=== PATIENT | female | born 1990 | race African-American/Black ===

== ENCOUNTER 2017-09-15 19:44 | Emergency (ER) | payer OTHER ==
[~2017-09-15] VITALS: Ht 157.5 cm; Wt 55.0 kg
[~2017-09-15 19:44] MED LIST: CYCL5TAB PO; NAPR500 PO; Z.0.NO CURRENT MEDS
[2017-09-15 19:48] VITALS: BP 115/76; PULSE 73; RESP 16; TEMP 98.4; O2SAT 100
[2017-09-15] MEDS ORDERED: ROBA500T PO (20:35)
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
[2017-09-15 20:49] VITALS: BP 117/76
== END 2017-09-15 21:02 | disposition home or self-care (01) ==
LOC: NEPD 19:44
DX: S13.4XXA Sprain of ligaments of cervical spine, initial encounter (principal); R51 Headache; V43.62XA Car passenger injured in collision with other type car in traffic accident, initial encounter
CPT/HCPCS: 99283